=== PATIENT | male | born 1980 | race Caucasian/White ===

== ENCOUNTER → 2020-02-03 08:50 | Outpatient (BNVA) | payer OTHER, SELFPAY | PROVIDERS: PCP Nurse Practitioner Family; Visit Provider Family Medicine Adult Medicine | DX: Z76.89 Persons encountering health services in other specified circumstances (principal) ==

== ENCOUNTER → 2020-03-23 14:23 | Outpatient (BNVA) | payer OTHER, SELFPAY | PROVIDERS: PCP Nurse Practitioner Family; Visit Provider Family Medicine Adult Medicine ==

== ENCOUNTER → 2020-05-04 15:01 | Outpatient (BNVA) | payer OTHER, SELFPAY | PROVIDERS: PCP Nurse Practitioner Family; Visit Provider Family Medicine Adult Medicine | DX: M47.816 Spondylosis without myelopathy or radiculopathy, lumbar region (principal) ==

== ENCOUNTER 2020-06-16 10:33 | Outpatient (REF) | payer OTHER, SELFPAY ==
--- NOTE | ~2020-06-16 | XR_ITS ---
EXAMINATION: XR HIP, LEFT CLINICAL INFORMATION: Pain in left hip COMPARISON: None TECHNIQUE: Two views of the left hip. FINDINGS: Bones and soft tissues are normal. No fracture. Alignment is anatomic. Hip joint space is maintained. XR/XR hip LT min 2V IMPRESSION: Normal left hip.
== END 2020-06-16 10:34 | disposition home or self-care (01) ==
LOC: HO.XRAY 10:33
PROVIDERS: PCP Nurse Practitioner Family; Visit Provider Nurse Practitioner Family
DX: M25.552 Pain in left hip (principal); Z79.899 Other long term (current) drug therapy
CPT/HCPCS: 73502

== ENCOUNTER → 2020-07-06 14:31 | Outpatient (BNVA) | payer OTHER, SELFPAY | PROVIDERS: PCP Nurse Practitioner Family; Visit Provider Family Medicine Adult Medicine ==

== ENCOUNTER → 2020-09-02 15:46 | Outpatient (BNVA) | payer OTHER, SELFPAY | PROVIDERS: PCP Nurse Practitioner Family; Visit Provider Family Medicine Adult Medicine ==

== ENCOUNTER 2021-10-10 16:27 | Outpatient (REF) | payer OTHER, SELFPAY ==
--- NOTE | ~2021-10-10 | CT_ITS ---
EXAMINATION: CT CHEST WITHOUT CONTRAST CLINICAL INFORMATION: Family history of malignant neoplasm of trachea, bronchus, and long COMPARISON: 03/29/2016 TECHNIQUE: Multidetector volumetric CT imaging of the chest was done. Axial MIP volume rendering provided. Sagittal and coronal reformatted images were obtained. This CT examination was performed using dose optimization techniques as appropriate, variously including the following: *Automated exposure control *Adjustment of mA and/or kV according to patient size (this includes techniques or standardized protocols for targeted exams where dose is matched to indication/reason for exam; i.e. 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 LUNGS: No tracheal or bronchial mass or thickening seen. Likely calcified 2 mm nodule in the right upper lobe adjacent to major fissure in image 192/620 unchanged from 2017 consistent with a benign etiology. 4 mm right lower lobe nodule in image 293/620, also unchanged since 2017. 3-4 mm peripheral right middle lobe nodule in image 387 was present previously and unchanged. Punctate 1-2 mm right middle lobe nodule along the fissural surface in image 384, unchanged. MEDIASTINUM: Again seen is residual thymic soft tissue in the anterior superior mediastinum. This is unchanged since 2017. No hilar or mediastinal lymphadenopathy. Normal heart size. PLEURA: There is no pleural effusion. No pleural mass or thickening. AXILLA: No lymphadenopathy. UPPER ABDOMEN: No adrenal mass. OSSEOUS STRUCTURES: Unremarkable. CT/CT chest wo IV con IMPRESSION: Several small pulmonary nodules are again seen unchanged since 2017. Per Fleischner criteria, the 5+ years of stability are consistent with a benign etiology for which no further imaging follow-up is recommended.
== END 2021-10-10 16:28 | disposition home or self-care (01) ==
LOC: HO.CT 16:27
PROVIDERS: PCP Nurse Practitioner Family; Visit Provider Nurse Practitioner Family
DX: F17.200 Nicotine dependence, unspecified, uncomplicated (principal); Z80.1 Family history of malignant neoplasm of trachea, bronchus and lung
CPT/HCPCS: 71250

== ENCOUNTER 2023-05-02 14:51 | Outpatient (AMB) | payer OTHER, SELFPAY ==
--- NOTE | 2023-05-02 14:52 | MHC.PC.OV ---
Vital Signs 05/02/23 14:54 Height 5 ft 9 in Weight 197 lb BMI 29.1 BP 122/80 Blood Pressure Location Lt brachial Position Sitting Pulse 65 Pulse Source Pulse Oximeter Pulse Oximetry (%) 98 Oxygen Delivery Method Room Air Intake Visit Reasons: annual exam/medication Intake Note: pt is here for annual exam, pt states right hand, 2 fingers concern of numbness for 2 weeks Commercial Designer Required: No Accompanied by: Self / Same As Patient Allergies acetaminophen [Tylenol] Allergy (Unknown, Verified 05/02/23 17:19) tried to overdose on it in past, and was advised to stay tony Medication List - Last Reconciled 05/02/23 by TATIANA Dahl ibuprofen 600 mg PO Q8H PRN tramadol ER 100 mg PO DAILY 90 days Tobacco use date assessed: 05/02/23 Dental Screening Dental Screen Date: 05/02/23 Did you have a dental visit in the last 12 months?: Yes Did you have a dental problem in the last 6 months where you did not have access to dental care?: No Was dental information given to patient?: Patient has dentist HPI annual exam/medication HPI Details Pt is here for a PE. Will order labs. Pt is taking tramadol 100mg for lower back pain. Will order drug screen. Pt c/o intermittent blood in stool. He has a hx of hemorrhoids. Pt does not want this looked at today. Recommended increased fiber and water intake. Pt will let me know if this continues. 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 1. Little interest or pleasure in doing things: not at all 2. Feeling down, depressed, or hopeless: not at all 3. Trouble falling or staying asleep, or sleeping too much: not at all 4. Feeling tired or having little energy: several days 5. Poor appetite or overeating: not at all 6. Feeling bad about yourself - or that you are a failure or have let yourself or your family down: not at all 7. Trouble concentrating on things, such as reading the newspaper or watching television: not at all 8. Moving or speaking so slowly that other people could have noticed. Or the opposite - being so fidgety or restless that you have been moving around a lot more than usual: not at all 9. Thoughts that you would be better off or of hurting yourself in some way: not at all Total score: 1 Depression Screening Interpretation: Negative Depression Screening Done: Yes 03386 - PHQ-9 Billing: Yes Source: Developed by Drs. Remy Velazquez, Laura Shore, Ken Guillen and colleagues, with an educational luan from [employer]. Thrive Questionnaire Date Thrive assessed: 05/02/23 I am a: Patient What is your living situation today?: I have a steady place to live Within the past 12 months, did the food you bought not last and you didn't have the money to get more?: Never true Within the past 12 months, did you worry whether your food would run out before you got money to buy more?: Never true Do you have trouble paying for medicines?: No Do you have trouble getting transportation to medical appointments?: No Do you have trouble paying your heating and electricity bill?: No Do you have trouble taking care of your child, family member or friend?: No Do you have trouble with day-to-day activities such as bathing, preparing meals, shopping, managing finances, etc.?: No Are you currently unemployed and looking for a job?: No Are you interested in more education?: No Please select the resources that you would like help with: None Currently or been in a relationship where the following occur: no concerns reported THRIVE Score: 0 AUDIT C Alcohol Use Questionnaire (AUDIT-C) 1. How often do you have a drink containing alcohol?: Never 3. How often do you have six or more drinks on one occasion?: Never Total Score: 0 Score Reviewed/Action Taken: Yes AZAM-7 AMB Questionnaire AZAM-7 Date AZAM - 7 assessed: 05/02/23 Feeling nervous, anxious, or on edge: 0 = Not at all Not being able to stop or control worryin = Not at all Worrying too much about different things: 0 = Not at all Trouble relaxin = Not at all Being so restless that it is hard to sit still: 0 = Not at all Becoming easily annoyed or irritable: 0 = Not at all Feeling afraid as if something awful might happen: 0 = Not at all Total AZAM-7 score (0-4 normal; 5-9 mild; 10-14 moderate; 15-21 severe): 0 Source: Developed by Drs. Remy Velazquez, Laura Shore, Ken Guillen and colleagues, with an educational luan from [employer]. AZAM-7 Assessment Billing AZAM-7 Assessment Tool: AZAM-7 Assessment 07421 Review of Systems Const Denies chills and Denies fever(s) Eyes Denies blurry vision ENT Denies vertigo, Denies dizziness and Denies sore throat Card Denies chest pain at rest, Denies chest pain with activity, Denies diaphoresis, Denies dyspnea and Denies dyspnea on exertion Resp Denies cough, Denies dyspnea, Denies dyspnea on exertion and Denies wheezing GI Denies abdominal pain, Denies melena, Reports hematochezia, Denies constipation, Denies diarrhea and Denies loose stools Denies hematuria Skin/Breast Denies lesions Neuro Denies vertigo and Denies dizziness Psych Denies anxiety, Denies depression, Denies homicidal ideation, Denies suicidal ideation and Denies other (substance abuse) Aller/Immun Denies wheezing Physical exam (Primary Care) Vital Signs: Last Vital Signs Pulse 65 05/02/23 14:54 BP 122/80 05/02/23 14:54 Pulse Ox 98 05/02/23 14:54 Oxygen Delivery Method Room Air 05/02/23 14:54 BMI result Body Mass Index 29.1 Tobacco/Smoking Status: Tobacco use Status Tobacco use date assessed 05/02/23 05/02/23 14:57 Patient Tobacco Use Status Former Tobacco user 03/20/24 14:52 e-Cigarette/Vaping Use Currently Using (sometimes ) 05/02/23 14:52 PHQ-9: PHQ-9 Score PHQ-9: Total score 1 05/02/23 15:08 Depression Screening Interpretation: Negative Thrive Assessment: Date of Thrive Assessment Date Thrive assessed 05/02/23 05/02/23 14:57 Currently or been in a relationship where the following occur: no concerns reported Const General: cooperative Nutritional Appearance: well nourished Orientation/consciousness: patient oriented x3 HENMT Head: Yes normal to inspection, Yes normocephalic and Yes atraumatic Ears: TM's normal bilaterally Eyes General: appearance normal, both eyes and all related structures Alignment and Position: alignment normal and position normal Neck Neck: Yes normal visual inspection and Yes no lymphadenopathy Thyroid: Thyroid normal Resp Effort & Inspection: normal respiratory effort Auscultation: clear to auscultation bilaterally Cardio Rate: regular rate Rhythm: regular rhythm Heart sounds: S1 normal heart sound present, S2 normal heart sound present and no murmurs GI Palpation (GI): Soft to palpation and nontender Auscultation: normal bowel sounds Male General Exam: Yes normal external exam Penis: normal penis Scrotum: scrotum normal, testes descended bilaterally and no inguinal hernias Testes: no testicular mass Skin Rashes: no rashes Neuro General: patient oriented x3, moves all extremities, no focal motor deficits and deep tendon reflexes 2+ bilaterally Romberg Test: Negative Psych Appearance: grossly normal Mental Status: mental status grossly normal Speech and movement: Normal speech and movement present Affect: normal affect Attitude: cooperative Thought process: Normal thought process present Thought content: Normal thought content present Insight: Good insight present (Psych) Judgement: Good judgement present (Psych) Assessment and Plan Assessment & Plan (1) Physical exam: Code(s): Z00.00 - Encounter for general adult medical examination without abnormal findings Plan: Labs ordered (2) Pain medication agreement: Code(s): Z02.89 - Encounter for other administrative examinations Plan: Drug screen ordered Plan The patient agreed to the use of a medical tech for this encounter. Scribed for TATIANA Gil by heber Edgar scribe, on 05/02/2023 at 15:25 EST. Orders: Orders TSH reflex Free T4 Today Z00.00 - Encounter for general adult medical examination without abnormal findings UA CC w/rflx Micro + Cult Today Z00.00 - Encounter for general adult medical examination without abnormal findings Lipid Panel Today Z00.00 - Encounter for general adult medical examination without abnormal findings Complete Blood Count Auto Diff Today Z00.00 - Encounter for general adult medical examination without abnormal findings Comprehensive [place]. Panel Fast Today Z00.00 - Encounter for general adult medical examination without abnormal findings Drug Screen Urine Today Z02.89 - Encounter for other administrative examinations Coding Level of Care Code Est Pt Prev Care 40-64y(66527) Diagnoses Physical exam Z00.00 Pain medication agreement Z02.89 Additional Codes ZAAM-7 Assessment Billing - AZAM-7 Assessment Tool: AZAM-7 Assessment 40707 ([id number])
[2023-05-02 14:54] VITALS: BP 122/80; PULSE 65; O2SAT 98; BMI 29.1
== END 2023-05-02 15:38 | disposition home or self-care (01) ==
PROVIDERS: PCP Nurse Practitioner Family; Visit Provider Nurse Practitioner Family
DX: Z00.00 Encounter for general adult medical examination without abnormal findings (principal)
CPT/HCPCS: 99396

== ENCOUNTER 2024-06-06 08:50 | Outpatient (REF) | payer OTHER, SELFPAY ==
[2024-06-06 10:01] LABS: MANUAL DIFF FLAG NO
[2024-06-06 10:15] LABS: Basophils Absolute Auto 0.1 X10*3/uL (0.0-0.2); Basophils Percent Auto 0.9 % (0-2); Eosinophils Absolute Auto 0.2 X10*3/uL (0.0-0.4); Eosinophils Percent Auto 2.8 % (0-4); Hematocrit 43.1 % (42.0-52.0); Hemoglobin 14.4 g/dl (14.0-18.0); Imm Gran Abs Auto 0.02 X10*3/uL (0.00-0.03); Imm Gran Pct Auto 0.3 % (0.0-0.4); Lymphocytes Absolute Auto 2.6 X10*3/uL (1.2-4.9); Lymphocytes Percent Auto 37.4 % (20-40); Mean Corpuscular HGB Conc 33.4 g/dl (31.0-36.0); Mean Corpuscular Hemoglobin 28.8 pg (27.0-33.0); Mean Corpuscular Volume 86.2 fL (80.0-98.0); Mean Platelet Volume 10.6 fL (9.4-12.4); Monocytes Absolute Auto 0.6 X10*3/uL (0.1-1.2); Monocytes Percent Auto 8.7 % (2-11); Neutrophils Absolute Auto 3.4 x10*3/uL (2.0-8.3); Neutrophils Percent Auto 49.9 % (45-73); Platelet Count 321 X10*3/uL (160-400); Red Cell Distribution Width 12.4 % (11.0-16.0); White Blood Count 6.9 X10*3/uL (4.8-10.8)
[2024-06-06 10:39] LABS: Alanine Aminotransferase 24 U/L (0-40); Albumin Level 4.1 g/dL (3.5-5.0); Alkaline Phosphatase 83 U/L (39-117); Anion Gap 8 (12-20); Aspartate Amino Transferase 23 U/L (5-37); Bilirubin Total 1.1 mg/dL (0.0-1.0); Blood Urea Nitrogen 12 mg/dL (9-16); Calcium 9.1 mg/dL (8.4-10.2); Carbon Dioxide 28 mmol/L (22-29); Chloride 107 mmol/L (96-108); Cholesterol 244 mg/dL (<200); Estimated Glomerular Filt Rate > 60; Glucose Fasting 98 mg/dL (60-99); HDL Cholesterol 42 mg/dL (>40); LDL Cholesterol Calculated 179 mg/dL (<100); Potassium 3.8 mmol/L (3.3-5.1); Sodium 139 mmol/L (135-145); Triglycerides 116 mg/dL (<150)
[2024-06-06 10:55] LABS: Appearance Urine Clear; Color Urine Yellow; Glucose Urine UA Negative (Negative); Leukocyte Esterase Urine Negative (Negative); Nitrite Urine Negative (Negative); Specific Gravity - Urine 1.025 (1.005-1.025); Urine Blood Negative (Negative); Urine Ketones Negative (Negative); Urine Protein Negative (Neg-Trace)
[2024-06-06 10:56] LABS: TSH reflex Free T4 0.58 uIU/mL (0.32-4.0)
[2024-06-06 11:19] LABS: Amphetamine Screen Urine Not Detected (Not Detect); Barbiturates, Urine Not Detected (Not Detect); Benzodiazepines Screen Urine Not Detected (Not Detect); Buprenorphine Scr Not Detected (Not Detect); Cannabinoid Screen Urine POSITIVE (Not Detect); Cocaine Screen Urine Not Detected (Not Detect); Fentanyl, urine Not Detected (Not Detect); Methadone Screen, Urine Not Detected (Not Detect); Opiate Screen Urine Not Detected (Not Detect); Oxycodone Screen Urine Not Detected (Not Detect); Phencyclidine Screen Urine Not Detected (Not Detect)
[2024-06-09 10:52] LABS: Codeine, Ur NEGATIVE; Hydrocodone, Ur NEGATIVE; Morphine, Ur NEGATIVE; Oxycodone, Ur NEGATIVE
[2024-06-09 10:53] LABS: Hydromorphone, Ur NEGATIVE; Norhydrocodone, Ur NEGATIVE; Noroxycodone, Ur NEGATIVE; Oxymorphone, Ur NEGATIVE
== END 2024-06-06 08:51 | disposition home or self-care (01) ==
LOC: HO.HMGCLDS 08:50
PROVIDERS: PCP Nurse Practitioner Family; Visit Provider Nurse Practitioner Family
DX: Z00.00 Encounter for general adult medical examination without abnormal findings (principal); Z02.89 Encounter for other administrative examinations; Z79.891 Long term (current) use of opiate analgesic
CPT/HCPCS: 80053; 80061; 80307; 80365; 81003; 84443; 85025; G0480

== ENCOUNTER 2024-06-09 15:51 | Outpatient (AMB) | payer OTHER, SELFPAY ==
[2024-06-09 16:22] VITALS: BP 124/80; PULSE 76; O2SAT 98; BMI 29.4
--- NOTE | 2024-06-09 16:22 | MHC.PC.OV ---
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 Required: No Accompanied by: Self / Same As Patient Allergies acetaminophen [Tylenol] Allergy (Unknown, Verified 06/09/24 16:22) tried to overdose on it in past, and was advised to stay tony Medication List - Last Reconciled 06/09/24 by NOLA Dahl- ibuprofen 600 mg PO Q8H PRN tramadol ER 100 mg PO DAILY 30 days Tobacco use date assessed: 06/09/24 Dental Screening Dental Screen Date: 06/09/24 Did you have a dental visit in the last 12 months?: Yes Did you have a dental problem in the last 6 months where you did not have access to dental care?: No Was dental information given to patient?: Patient has dentist HPI Annual PE HPI Details History of Present Illness The patient is a 44-year-old male presenting for a physical exam. He presents with chronic lower back pain, managed with tramadol. 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 He reports adequate management of his pain with his current medication regime. He denies chest pain, respiratory issues, urinary problems, or gastrointestinal disturbances. No recent fevers, chills, or psychological distress have been reported. labs were already drawn. dyslipidemia: pt will work on his diet and repeat in 2 months approx. 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 Review of Systems - Cardiovascular: Denies chest pain. - Respiratory: Denies shortness of breath. - Gastrointestinal: Denies abdominal pain, constipation, diarrhea, or changes in stool. - Genitourinary: Denies urinary symptoms. - Constitutional: Denies fevers or chills. - Psychiatric: Denies suicidal ideation or homicidal ideation. Physical Exam General: Cooperative, healthy appearing, comfortable, no acute distress and well developed Orientation: Patient oriented x3 Limitations: No limitations Head: Normal to inspection Ears: Hearing grossly normal bilaterally Nose: Normal external nose present Face and sinus: Normal facial exam Eyes: Appearance normal, both eyes and all related structures Neck: Normal visual inspection and Yes full ROM Respiratory: Normal respiratory effort and able to speak in complete sentences. Clear to auscultation bilaterally Cardiovascular: Regular rate and rhythm. Normal S1 and S2 GI: Normal to inspection. Soft to palpation and nontender Skin: No rashes or lesions noted Neuro: Patient oriented x3 Extremities: Normal to inspection Results Plan I plan to continue the patient's current management of chronic lower back pain with tramadol, monitoring its effectiveness and tolerability. A renewal of the narcotic contract has been agreed upon for continued tramadol use. 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 Further monitoring of the pain management regimen will continue without additional interventions at this time. Discussion Notes I discussed with the patient the ongoing management of his chronic lower back pain and the importance of adhering to his tramadol regimen. We reviewed the renewal of his narcotic contract and the necessity of maintaining controlled use. I emphasized the monitoring of pain control given his occupational demands, confirming his understanding of the management plan. We agreed to continue tramadol therapy, as he has responded adequately with his current dose. Future adjustments will be made based on the progression of symptoms or any new complaints. Patient Instructions - Continue taking tramadol as prescribed for back pain. - Avoid any additional stress on the back when possible. - Report any new symptoms or changes in pain to my office immediately. - Follow up as scheduled for monitoring of pain management and medication efficacy. 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 1. Little interest or pleasure in doing things: not at all 2. Feeling down, depressed, or hopeless: not at all 3. Trouble falling or staying asleep, or sleeping too much: not at all 4. Feeling tired or having little energy: several days 5. Poor appetite or overeating: not at all 6. Feeling bad about yourself - or that you are a failure or have let yourself or your family down: not at all 7. Trouble concentrating on things, such as reading the newspaper or watching television: not at all 8. Moving or speaking so slowly that other people could have noticed. Or the opposite - being so fidgety or restless that you have been moving around a lot more than usual: not at all 9. Thoughts that you would be better off or of hurting yourself in some way: not at all Total score: 1 Depression Screening Interpretation: Negative Depression Screening Done: Yes 81546 - PHQ-9 Billing: Yes Source: Developed by Drs. Remy Velazquez, Laura Shore, Ken Guillen and colleagues, with an educational luan from [employer]. Thrive Questionnaire Date Thrive assessed: 06/09/24 I am a: Patient What is your living situation today?: I have a steady place to live Within the past 12 months, did the food you bought not last and you didn't have the money to get more?: Never true Within the past 12 months, did you worry whether your food would run out before you got money to buy more?: Never true Do you have trouble paying for medicines?: No Do you have trouble getting transportation to medical appointments?: No Do you have trouble paying your heating and electricity bill?: No Do you have trouble taking care of your child, family member or friend?: No Do you have trouble with day-to-day activities such as bathing, preparing meals, shopping, managing finances, etc.?: No Are you currently unemployed and looking for a job?: No Are you interested in more education?: Yes Please select the resources that you would like help with: None Currently or been in a relationship where the following occur: No concerns reported THRIVE Score: 0 AUDIT C Alcohol Use Questionnaire (AUDIT-C) 1. How often do you have a drink containing alcohol?: Never 3. How often do you have six or more drinks on one occasion?: Never Total Score: 0 Score Reviewed/Action Taken: Yes AZAM-7 AMB Questionnaire AZAM-7 Date AZAM - 7 assessed: 06/09/24 Feeling nervous, anxious, or on edge: 0 = Not at all Not being able to stop or control worryin = Several days Worrying too much about different things: 1 = Several days Trouble relaxin = Not at all Being so restless that it is hard to sit still: 0 = Not at all Becoming easily annoyed or irritable: 1 = Several days Feeling afraid as if something awful might happen: 0 = Not at all Total AZAM-7 score (0-4 normal; 5-9 mild; 10-14 moderate; 15-21 severe): 3 Source: Developed by Drs. Remy Velazquez, Laura Shore, Ken Guillen and colleagues, with an educational luan from [employer]. AZAM-7 Assessment Billing AZAM-7 Assessment Tool: AZAM-7 Assessment 27472 Physical exam (Primary Care) Vital Signs: Last Vital Signs Pulse 76 06/09/24 16:22 BP 124/80 06/09/24 16:22 Pulse Ox 98 06/09/24 16:22 Oxygen Delivery Method Room Air 06/09/24 16:22 BMI result Body Mass Index 29.4 Tobacco/Smoking Status: Tobacco use Status Tobacco use date assessed 06/09/24 06/09/24 16:23 Patient Tobacco Use Status Former Tobacco user 06/09/24 16:23 e-Cigarette/Vaping Use Currently Using (sometimes ) 06/09/24 16:23 PHQ-9: PHQ-9 Score PHQ-9: Total score 1 06/09/24 16:30 Depression Screening Interpretation: Negative Thrive Assessment: Date of Thrive Assessment Date Thrive assessed 06/09/24 06/09/24 16:23 Currently or been in a relationship where the following occur: No concerns reported Coding Level of Care Code Est Pt Prev Care 40-64y(57011) Diagnoses Dyslipidemia E78.5 Physical exam Z00.00 Additional Codes AZAM-7 Assessment Billing - AZAM-7 Assessment Tool: AZAM-7 Assessment 30503 ([id number]) PHQ-9 - 60538 - PHQ-9 Billing: Yes ([id number]) Assessment & Plan Assessment & Plan (1) Dyslipidemia: Code(s): E78.5 - Hyperlipidemia, unspecified Category: Medical (2) Physical exam: Code(s): Z00.00 - Encounter for general adult medical examination without abnormal findings Category: Medical Plan . Orders: Orders Comprehensive [place]. Panel Fast Today E78.5 - Hyperlipidemia, unspecified Lipid Panel Today E78.5 - Hyperlipidemia, unspecified
== END 2024-06-09 17:04 | disposition home or self-care (01) ==
PROVIDERS: PCP Nurse Practitioner Family; Visit Provider Nurse Practitioner Family
DX: E78.5 Hyperlipidemia, unspecified (principal); Z00.00 Encounter for general adult medical examination without abnormal findings

== ENCOUNTER → 2024-06-09 15:51 | Outpatient (BNVA) | payer OTHER, SELFPAY | PROVIDERS: PCP Nurse Practitioner Family; Visit Provider Nurse Practitioner Family | DX: Z00.00 Encounter for general adult medical examination without abnormal findings (principal); E78.5 Hyperlipidemia, unspecified; G89.29 Other chronic pain; M54.50 Low back pain, unspecified; Z79.891 Long term (current) use of opiate analgesic | CPT/HCPCS: 96127 ==